=== PATIENT | male | born 1955 | race African-American/Black ===

== ENCOUNTER 2017-02-27 16:57 | Emergency (ER) | payer BC ==
[~2017-02-27] VITALS: Ht 175.3 cm; Wt 75.8 kg
[2017-02-27 17:42] VITALS: BP 107/66
[2017-02-27] MEDS ORDERED: MOBIC15 MG PO (18:08)
== END 2017-02-27 19:00 | disposition home or self-care (01) ==
LOC: ER 16:57
DX: M79.644 Pain in right finger(s) (principal); F17.210 Nicotine dependence, cigarettes, uncomplicated